=== PATIENT | male | born 1940 | race Caucasian/White ===

== ENCOUNTER → 2016-12-11 | Outpatient (CLI) | payer OTHER ==
[2016-12-11 13:36] LABS: ALT/SGPT 24 U/L (12-78); AST/SGOT 18 U/L (15-37); BLOOD UREA NITROGEN 17 mg/dl (7-18); CALCIUM 8.6 mg/dl (8.5-10.1); CARBON DIOXIDE 29 mmol/L (21-32); CHLORIDE 105 mmol/L (98-107); CREATININE 0.94 mg/dl (0.60-1.40); GLUCOSE 96 mg/dl (70-99); MAGNESIUM 1.7 mg/dl (1.8-2.4); SODIUM 140 mmol/L (136-145)
[2016-12-11 13:39] LABS: CHOLESTEROL 146 mg/dl (0-200); CHOLESTEROL/HDL RATIO 3.6; HDL CHOLESTEROL 41 mg/dl; LDL CHOLESTEROL CALCULATED 89 mg/dl; TRIGLYCERIDES 78 mg/dl (0-150); URIC ACID 4.2 mg/dl (2.6-7.2); VERY LOW DENSITY LIPOPROT CALC 16 mg/dl
== END | disposition home or self-care (01) ==
LOC: C.LABMFLN 08:15
PROVIDERS: ATTEND Family Medicine
DX: I10 Essential (primary) hypertension (principal); N20.0 Calculus of kidney; E83.42 Hypomagnesemia

== ENCOUNTER → 2017-06-08 | Outpatient (CLI) | payer OTHER ==
[2017-06-08 14:04] LABS: ALT/SGPT 18 U/L (12-78); AST/SGOT 18 U/L (15-37); BLOOD UREA NITROGEN 13 mg/dl (7-18); BUN/CREATININE RATIO 13.7 (10-20); CALCIUM 9.2 mg/dl (8.5-10.1); CARBON DIOXIDE 30 mmol/L (21-32); CHLORIDE 102 mmol/L (98-107); CHOLESTEROL 172 mg/dl (0-200); CREATININE 0.94 mg/dl (0.60-1.40); GLUCOSE 92 mg/dl (70-99); MAGNESIUM 1.9 mg/dl (1.8-2.4); POTASSIUM 3.9 mmol/L (3.5-5.1); SODIUM 137 mmol/L (136-145); TRIGLYCERIDES 98 mg/dl (0-150); VERY LOW DENSITY LIPOPROT CALC 20 mg/dl
[2017-06-08 14:07] LABS: CHOLESTEROL/HDL RATIO 4.9; HDL CHOLESTEROL 35 mg/dl; LDL CHOLESTEROL CALCULATED 117 mg/dl
== END | disposition home or self-care (01) ==
LOC: C.LABMFLN 08:56
PROVIDERS: ATTEND Family Medicine
DX: E78.00 Pure hypercholesterolemia, unspecified (principal); N20.0 Calculus of kidney; E83.42 Hypomagnesemia; G25.0 Essential tremor

== ENCOUNTER → 2017-07-14 | Outpatient (CLI) | payer OTHER ==
[2017-07-14 13:45] LABS: BLOOD UREA NITROGEN 16 mg/dl (7-18); CREATININE 0.94 mg/dl (0.60-1.40)
== END | disposition home or self-care (01) ==
LOC: C.LABMFLN 09:18
PROVIDERS: ATTEND Family Medicine
DX: Q45.3 Other congenital malformations of pancreas and pancreatic duct (principal)

== ENCOUNTER → 2017-12-28 | Outpatient (CLI) | payer OTHER ==
[2017-12-28 14:14] LABS: ALT/SGPT 23 U/L (12-78); AST/SGOT 18 U/L (15-37); BLOOD UREA NITROGEN 17 mg/dl (7-18); CALCIUM 8.7 mg/dl (8.5-10.1); CARBON DIOXIDE 29 mmol/L (21-32); CHOLESTEROL 160 mg/dl (0-200); CREATININE 1.01 mg/dl (0.60-1.40); GLUCOSE 100 mg/dl (70-99); POTASSIUM 3.8 mmol/L (3.5-5.1); SODIUM 136 mmol/L (136-145); URIC ACID 4.1 mg/dl (2.6-7.2)
[2017-12-28 14:16] LABS: LDL CHOLESTEROL CALCULATED 106 mg/dl
== END | disposition home or self-care (01) ==
LOC: C.LABMFLN 08:44
PROVIDERS: ATTEND Family Medicine
DX: E78.00 Pure hypercholesterolemia, unspecified (principal); N20.0 Calculus of kidney; G25.0 Essential tremor

== ENCOUNTER 2021-01-31 08:31 | Observation (INO) ==
--- NOTE | 2021-01-01 14:42 | PAT Medication Instructions ---
Medication Instructions Date of Service January 01, 2021 Home Medications Medication Instructions Recorded memantine 10 mg tablet 10 mg PO BID #60 tab 02/08/20 simvastatin 40 mg tablet 40 mg PO QPM #90 tab 05/13/20 propranolol 60 mg tablet 60 mg PO BID #60 tab 11/12/20 aspirin 81 mg tablet,delayed release 81 mg PO Q2D memantine 10 mg tablet 10 mg PO BID simvastatin 40 mg tablet 40 mg PO QPM propranolol 60 mg tablet 60 mg PO BID ascorbate calcium (vitamin C) 500 mg tablet 500 mg PO QAM allopurinol 100 mg PO QAM donepezil 5 mg PO QAM felodipine 5 mg PO QPM tramadol 50 mg PO Q6H PRN vitamin E 400 unit PO QAM STOP taking 2 weeks before surgery If surgery is within 2 weeks, stop taking as soon as possible. vitamin E 400 unit PO QAM DO NOT take the morning of surgery ascorbate calcium (vitamin C) 500 mg tablet 500 mg PO QAM Take morning of surgery With a small sip of water, OTHERWISE NOTHING TO EAT OR DRINK AFTER MIDNIGHT: aspirin 81 mg tablet,delayed release 81 mg PO Q2D memantine 10 mg tablet 10 mg PO BID propranolol 60 mg tablet 60 mg PO BID allopurinol 100 mg PO QAM donepezil 5 mg PO QAM tramadol 50 mg PO Q6H PRN (if needed, may be taken up to four hours before surgery) Take evening before surgery memantine 10 mg tablet 10 mg PO BID simvastatin 40 mg tablet 40 mg PO QPM propranolol 60 mg tablet 60 mg PO BID felodipine 5 mg PO QPM tramadol 50 mg PO Q6H PRN (if needed) Other Notes If you have any questions please call us at [phone] or [phone] or [phone] or [phone]
--- NOTE | 2021-01-06 10:44 | Anesthesiology Consultation ---
Date of Service January 06, 2021 Assessment & Plan (1) Encounter for pre-operative examination: COVID Status: As of 01/06 assessment, patient denies travel to endemic area, known exposure/sick contacts, or symptoms of COVID19. Patient instructed that they and their household members must follow strict social distancing guidelines, wear a mask in public and avoid travel/events/gatherings for 14 days prior to surgery. Preoperative COVID19 testing to be completed prior to surgery per surgeon's arrangements. Patient made aware to self-isolate as much as possible between COVID testing and surgery. Pt to get second covid vaccine 01/07. Chart Review Chart Review: Acceptable Risk for Surgery and Patient seen in Pre Admission Testing Teaching & Discussion Instructed NPO after midnight before surgery, except medications with 15 cc of water. Medication instructions provided according to the PAT guidelines. History Surgery Operation Date: 01/31/21 10:55 Proposed Procedures p Left Total Knee Arthroplasty - Robert Dye MD Height/Weight Height: 5 ft 10 in Weight: 73.8 kg Allergies Allergy/AdvReac Type Severity Reaction Status Date / Time No Known Drug Allergies Allergy Verified 01/01/21 09:00 Medications Home Medications Medication Instructions Recorded Confirmed Last Taken aspirin 81 mg tablet,delayed 81 mg PO Q2D tab 06/18/19 01/01/21 Unknown release memantine 10 mg tablet 10 mg PO BID #60 tab 02/08/20 01/01/21 Unknown simvastatin 40 mg tablet 40 mg PO QPM #90 tab 05/13/20 01/01/21 Unknown propranolol 60 mg tablet 60 mg PO BID #60 tab 11/12/20 01/01/21 Unknown ascorbate calcium (vitamin C) 500 500 mg PO QAM 12/18/20 01/01/21 Unknown mg tablet allopurinol 100 mg PO QAM 01/01/21 01/01/21 Unknown donepezil 5 mg PO QAM 01/01/21 01/01/21 Unknown felodipine 5 mg PO QPM 01/01/21 01/01/21 Unknown tramadol 50 mg PO Q6H PRN 01/01/21 01/01/21 Unknown vitamin E 400 unit PO QAM 01/01/21 01/01/21 Unknown Past Medical History Medical History (Updated 01/08/21 @ 10:34 by Vazquez Colby) Benign essential hypertension Benign essential tremor RIGHT HAND-F/U PCP Cervicalgia Chronic GERD Hypercholesterolemia Hypomagnesemia Left carotid stenosis 70-99% stenosis per 06/19/[address]. [address] Douglas 06/2020, with carotid doppler performed prior to that visit showing 60-69% stenosis of LICA per office note. 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 Carotid doppler from 06/19/19 done for TIA, 70-99% carotid stenosis noted. Pt follows q 6mo with Dr. Douglas. Exercise / Class Metabolic Activity II 4-5 Yardwork/Stairs/Walk up hill (Denies CP or SOB with 1 FOS) Past Family History Family History Son Hypertension Father Hypotension Stroke Uncle Family history of diabetes mellitus Uncle Family history of diabetes mellitus Past Surgical History Surgical History (Updated 01/08/21 @ 10:34 by Vazquez Colby) H/O nephrolithotomy with removal of calculi YRS AGO History of colonoscopy History of hip replacement X3-2 RIGHT/1 LEFT History of lithotripsy MULTIPLE History of open reduction and internal fixation (ORIF) procedure RIGHT ARM Past Anesthesia History No Hx of Anesthesia Complications and No Family Hx of Anesthesia Complications History of PONV No Hx of PONV and No Hx of Motion Sickness Social History Smoking Status: Former smoker Do You Dip or Chew Tobacco: No Smoking End Date: YRS AGO-QUIT IN HIS 20'S Hx Alcohol Use: No Hx Substance Use: No Review of Systems Pt denies any recent chest pain, shortness of breath, palpitations, cough, fever, URI, or uncontrolled acid reflux (controlled, just gets occasional breakthrough). Physical Exam Vital Signs BP: 163/79 (pt reports h/o white coat HTN) P: 50bpm (asymptomatic) SPO2: 97% RA T: 98.0 F R: 16 ENMT Mouth: + dentures (upper only) and + edentulous Thyromental Distance: > or= 3.5 Finger Breadths (3.5) Mallampati Class: I Neck normal visual inspection; neck extension not limited Respiratory Auscultation: lungs clear to auscultation bilaterally (other than crackles) and + crackles (R and middle lung base only) Cardiovascular Rate/Rhythm: regular rhythm and + bradycardic (marked) Heart Sounds: no murmur Vessels: no carotid bruit Extremities: no edema Testing Laboratory Results 01/06/21 10:02 01/06/21 10:52 PT 10.9 Seconds (9.0-12.0) 01/06/21 10:02 INR 1.1 (0.9-1.1) 01/06/21 10:02 APTT 25.1 Seconds (21.0-31.0) 01/06/21 10:02 Blood Type A Positive 01/06/21 10:02 Antibody Screen NEGATIVE 01/06/21 10:02 Electrocardiogram Date: 01/06/21 Findings: + SB @ (46bpm) RBBB (new compared to 2003 EKG). Chest X-Ray Date: 01/06/21 FINDINGS: No pneumothorax or no pleural effusions. The heart is normal in size. There is a mildly tortuous thoracic aorta. There is mild diffuse interstitial thickening which is likely chronic. No focal lung consolidations to suggest pneumonia. No evidence for pulmonary edema. Right lower lung zone nodular density likely represents a nipple shadow. Mild anterior wedge-shaped compression deformities within the mid thoracic spine. This is likely chronic. IMPRESSION: Chronic changes as described above. No acute process within the chest. Echocardiogram Date: 06/20/19 EF: 60-65% Normal LV size and systolic function. No regional wall motion normalities. Mild concentric LVH. Sclerotic aortic valve without significant stenosis. Mild mitral regurgitation. Normal estimated RVSP. No prior study available for comparison. Other Testing Per office note from vascular ([facility], Liya Silva/Stella) -- Carotid duplex from 06/2020 showed "60-69% stenosis of the left ICA and no hemodynamically significant stenosis in the right ICA. He has antegrade flow in both vertebral arteries and normal flow in both subclavian arteries. This is essentially unchanged in comparison to the last ultrasound performed at [place] approximately 1 year ago."
--- NOTE | 2021-01-06 11:21 | XRay Report ---
XR chest Pre-admission PA/Lat HISTORY: Preadmission chest x-ray. Preop. Degenerative joint disease. COMPARISON: None. FINDINGS: No pneumothorax or no pleural effusions. The heart is normal in size. There is a mildly tor tuous thoracic aorta. There is mild diffuse interstitial thickening which is likely chronic. No focal lung consolidations to suggest pneumonia. No evidence for pulmonary edema. Right lower lung zone nod ular density likely represents a nipple shadow. Mild anterior wedge-shaped compression deformities wi thin the mid thoracic spine. This is likely chronic. IMPRESSION: Chronic changes as described above. No acute process within the chest. ACT 112: Negative or not required by law. Electronically signed by: Arthur Johansen M.D. 01/06/2021 11:20 AM
[2021-01-06 12:06] LABS: Basophils # (auto) 0.03 K/uL (0-0.2); Basophils % (auto) 0.5 %; Eosinophils % (auto) 8.6 %; Hematocrit (blood only) 41.1 % (42-52); Hemoglobin 14.2 g/dL (14.0-18.0); Lymphocytes # (auto) 1.13 K/uL (1.2-3.4); Lymphocytes % (auto) 19.4 %; Mean Corpuscular Hemoglobin 31.8 pg (25-34); Mean Corpuscular Hgb Conc 34.5 g/dL (32-36); Mean Corpuscular Volume 92.2 fL (80-100); Mean Platelet Volume 10.5 fL (7.4-10.4); Monocytes # (auto) 0.65 K/uL (0.11-0.59); Monocytes % (auto) 11.2 %; Neutrophils # (auto) 3.51 K/uL (1.4-6.5); Neutrophils % (auto) 60.3 %; Platelet Count 208 K/uL (130-400); RDW Coefficient of Variation 12.9 % (11.5-14.5); RDW Standard Deviation 43.4 fL (36.4-46.3); Red Blood Count 4.46 M/uL (4.7-6.1); White Blood Count 5.82 K/uL (4.8-10.8)
[2021-01-06 12:17] LABS: INR 1.1 (0.9-1.1); Partial Thromboplastin Time 25.1 Seconds (21.0-31.0); Prothrombin Time 10.9 Seconds (9.0-12.0)
[2021-01-06 12:50] LABS: BUN Creatinine Ratio 16.8 (10-20); Calcium 9.3 mg/dl (8.5-10.1); Creatinine Clr Calc Pharmacy 63.8 ml/min; Est GFR (African American) 85.7; Est GFR (Non-African American) 73.9
--- NOTE | 2021-01-07 05:53 | Electrocardiogram Report ---
Test Reason : Blood Pressure : / mmHG Vent. Rate : 046 BPM Atrial Rate : 046 BPM P-R Int : 174 ms QRS Dur : 150 ms QT Int : 502 ms P-R-T Axes : 073 067 061 degrees QTc Int : 439 ms Sinus bradycardia Right bundle branch block Abnormal ECG When compared with ECG of 29-OCT-2003 14:17, Right bundle branch block is now Present Confirmed by Jorge Alberto Grace ([id number]) on 01/07/2021 5:52:44 AM Referred By: Robert Dye Confirmed By:Jorge Alberto Grace
--- NOTE | 2021-01-25 09:53 | History and Physical Report ---
DATE OF ADMISSION: 01/31/2021 CHIEF COMPLAINT: Left knee pain. HISTORY OF PRESENT ILLNESS: A 80-year-old gentleman from [place] who presents for treatment of his left knee. He has got a long history of left knee pain and discomfort, describes it has gotten worse over time. He has been through extensive conservative care including oral medicines which provide minimal relief. He has had injection which seemed to help a little bit more, but it is only temporary. Pain is mostly with weightbearing. It increases as the day goes on. He limps more as the day goes on. He gets stiff if he sits down. He has difficulty going up and down steps. He would like to have his knee fixed. PAST MEDICAL HISTORY: 1. Hypertension. 2. History of TIA without residual swelling. 3. Gastroesophageal reflux disease. 4. Kidney stones. 5. Carotid stenosis. 6. Right bundle branch block. PAST SURGICAL HISTORY: Include bilateral hip replacements done by Dr. Keene with one revision. ALLERGIES: None. CURRENT MEDICINES: Include: 1. Allopurinol 100 mg. 2. Vitamin C. 3. Aspirin 81 mg a day. 4. Donepezil 5 mg. 5. Felodipine ER 5 mg. 6. Memantine 10 mg twice a day. 7. Propranolol 60 mg twice a day. 8. Simvastatin 40 mg a day. 9. Tramadol. SOCIAL HISTORY: A 80-year-old male. He is . He is retired. FAMILY HISTORY: Significant for hypertension. REVIEW OF HISTORY: Negative for diabetes, neurologic problem, vascular problem, bleeding disorders. He does have a history of TIA in the past without sequelae. No chest pain. No DVTs or PEs. PHYSICAL EXAMINATION: GENERAL: Shows a pleasant 80-year-old male. Looks to be in good health. Looks younger than his stated age. HEENT: Benign. NECK: Supple, no lymphadenopathy. LUNGS: Clear to auscultation. HEART: Regular rate and rhythm. ABDOMEN: Soft, nontender, nondistended. EXTREMITIES: Grossly neurovascularly intact except as follows. Examination of the left knee reveals the patient walks with a little bit of a limp. He has got valgus alignment to his knee which increases with weightbearing. Small knee effusion. Thin soft tissue envelope. Range of motion is about 10-degree flexion contracture to about 120 degrees of flexion. No pain with hip motion. X-RAYS: X-rays of the left knee reviewed. It shows advanced left knee lateral compartment DJD. He has got complete loss of his lateral joint space. He has got subchondral sclerosis with osteophytes laterally. ASSESSMENT: A 80-year-old male with history of bilateral hip replacements in the past and 1 revision with multiple medical comorbidities including hypertension, transient ischemic attack, gastroesophageal reflux disease, kidney stones, carotid artery stenosis and right bundle tyron block with advanced left knee degenerative joint disease. He has failed conservative measures and would like to have his left knee replaced. PLAN: We will take him to the operating room and do a left total knee replacement. The risks and benefits of this procedure were explained to the patient including but not limited to DVT, PE, , infection, neurological injury, vascular injury, bleeding problem, pain, limited range of motion, stiffness, failure to relieve symptoms, incomplete relief of symptoms, need for further surgery in future, fracture, leg length inequality, nerve palsy, etc. The patient understands and desires to proceed. Informed consent was obtained. We did talk to him about taking his beta gertrude the morning of surgery and hold the donepezil. He is planning to be discharged to home using [facility] home health program.
[~2021-01-31 08:31] MED LIST: ACETAMINOPHEN 500 MG TAB PO SCH; BUPIVACAINE 0.5 % 5 MG/1 ML PF 10ML VIAL ONE; BUPIVACAINE LIPOSOME/PF 266 MG, BUPIVACAINE/EPINEPHRINE 50 ML, SODIUM CHLORIDE 0.9% 30 ... INFIL SCH; EPINEPHrine INJ 1 MG/ML AMP ONE; FAMOTIDINE 20 MG TAB PO SCH; GABAPENTIN 300 MG CAP PO SCH; LR 500ML BOLUS, THEN 15ML/HR IV SCH; ROPIVACAINE 0.5% 5 MG/ML 30 ML VIAL ONE; ceFAZolin 2000MG 2,000 MG/15 ML SYR IV SCH
--- NOTE | 2021-01-31 09:00 | History & Physical Bridge Note ---
Date of Service January 31, 2021 History & Physical Bridge Note I have examined the patient, reviewed the History & Physical and in the interval since the performance of the History & Physical I have noted the following changes of clinical significance: no changes noted
[2021-01-31] MEDS ORDERED: fentaNYL citrate 100 MCG/2 ML VIAL ONE (09:21)
[2021-01-31] MEDS ORDERED: MIDAZOLAM HCL 1 MG/ML 2ML VIAL ONE (09:21)
[2021-01-31] MEDS ORDERED: TRANEXAMIC ACID / 0.7% NACL 1,000 MG/100 ML BAG IV STA (09:34)
[2021-01-31] MEDS ORDERED: TRANEXAMIC ACID / 0.7% NACL 1000MG/100ML BAG IV ONE (09:50)
[2021-01-31] MEDS ORDERED: SODIUM CHLORIDE 0.9% PF 50 ML VIAL ONE (11:03)
[2021-01-31] MEDS ORDERED: BUPIVACAINE LIPOSOME 1.3% 266 MG/20 ML VIAL ONE (11:03)
[2021-01-31] MEDS ORDERED: BUPIVACAINE 0.25% 30 ML VIAL ONE (11:03)
[2021-01-31] MEDS ORDERED: EPINEPHrine INJ 1 MG/ML AMP ONE (11:04)
[2021-01-31] MEDS ORDERED: ATROPINE SULFATE 0.1 MG/ML 10ML SYR IV PRN (11:10)
[2021-01-31] MEDS ORDERED: ePHEDrine sulfate 50 MG/ML AMP IV PRN (11:10)
[2021-01-31] MEDS ORDERED: PROPOFOL IV EMULSION 10 MG/ML 20 ML VIAL IV ONE (11:30)
--- NOTE | 2021-01-31 13:19 | Operative Report ---
Post Operative Report Pre & Post Diagnosis Operation Date: 01/31/21 10:40 Pre-Op Diagnosis: Left Knee Advanced Degenerative Joint Disease Post-Op Diagnosis: Left Knee Advanced Degenerative Joint Disease I identified the patient and participated in the time-out.: Yes Procedure Operation Date: 01/31/21 10:40 Actual Procedures p Left Total Knee Arthroplasty(Left) - Robert Dye MD Surgeon Robert Dye MD Foundation Director SYBIL Perez Estimated Blood Loss 50 Findings Consistent with Post-Op Diagnosis Operative findings were revealed advanced left knee DJD with extensive grade 4 hxrm-xa-pine disease and eburnation of the lateral compartment. His medial and patellofemoral compartments were pretty well-preserved. Moderate-sized joint effusion. He had about 10 to 15 degree flexion contracture with a fixed valgus deformity. Fluids 500 cc Specimens Left knee sent for pathology. Drains None Anesthesia Type Spinal MAC Complications none Disposition Accompanied Patient To Recovery: Yes Indications Patient is a 80-year-old gentleman has had a long history of left knee pain discomfort describes gotten worse over time. He failed conservative measures. His knee was also giving out on him regularly. He elected proceed with surgical treatment. Description of Procedure Operative implants consist of: 1. Biomet Vanguard size 65 left posterior stabilized femoral component. 2. Biomet size 71 tibial tray. 3. 10 mm posterior stabilized plus polyethylene insert. 4. 28 x 8 all polypatella. Patient was taken to the operating, identified, placed on the operating table supine position but all contractors were properly padded. IV antibiotics were h igh by the anesthesia team. A Jarquin catheter was placed in sterile fashion. A left thigh turn was then placed. Left lower extremity was then prepped and draped in usual sterile fashion. The left leg was elevated exsanguinated with use of an Esmarch and turns placed at 3 mmHg. An anterior approach left knee was then performed through longitudinal incision centered over the patella. Sharp dissection was carried through subcutaneous this down the extensor mechanism. A medial parapatellar arthrotomy incision was made. Some subperiosteal dissection was carried out medially. The fat pad was resected from each patella tendon. Lateral patellofemoral ligament was released. Patella was subluxated laterally and the knee was flexed. The osteophytes were taken off distal femur. The ACL and PCL were then released in the distal femur and the tibia subluxated anteriorly. The external tibial alignment jig was then placed in the interface the tibia and adjusted 12 mm medially. Proximal tibial cut was made to remove 3 to 4 mm of bone from the medial side. The tibia was then sized to a size 71. We did have to downsize this a bit in order to get properly rotated. Attention drawn the f emur. The distal femur stem with a sharp drop with intramedullary canal was suction. A left 5 degree valgus cutting guide was placed. Distal femoral cutting block was pinned in place but distal femoral cut was made to take an additional 5 mm of bone off distal femur. I then brought the knee out in extension. I did release some the IT band in order to equalize extension gap. The knee was then flexed. The femur was sized to a size 65. The AP cutting block was pinned parallel to the epicondylar axis which was 6 degrees of external rotation. The anterior cut, anterior chamfer, posterior cut, posterior chamfer cuts were made. The box cutting guide was then placed in the box cut was made. The knee was flexed. The remnants of the medial and lateral menisci were excised. The osteophytes were taken off the posterior aspect the femur. I did release the popliteus in order to equalize the flexion gap. A trial femoral component was placed and the tibial tray was pinned in maximum external rotation and the drill and stem punch were used to create defect in proximal tibia for the tibial tray. Knee was then trialed and the 10 mm insert fit most appropriately. He still a little bit of laxity to his MCL so I elected to use the PS plus insert to maximize stability. I felt if I increased his polythickness it would likely lead to more tightness in extension in which I wanted to avoid as he said a previous flexion contracture. We elect to place his implants. Attention drawn the patella. The patella was cleaned of all soft tissue. Patella thickness measured 23 mm in thickness was cut down to 14. It was sized to a 28 patella. The lug holes were drilled for the 28 patella. The lateral osteophyte was removed. Patella button was placed. Knee was taken through range of motion patella tracked nicely with no thumbs test. Attention placed through the permanent components. All trial components were removed. A bone plug was placed in the distal femur limit blood loss. A double batch Palacos G cement was mixed. A size 65 left posterior stabilized femoral component, size 71 tibial tray, a 10 mm posterior stabilized polyethylene plus insert and a 28 x 8 all polypatella were then cemented in place. Knee was brought out into full extension total cement hardened. Final cement check was then performed. Pericapsular tissues were injected with a total of 100 cc of combination of 20 cc of Exparel, 30 cc normal saline, 50 cc of quarter percent Marcaine with epinephrine. Patient did receive 1 g tranexamic acid per the chart was then let down for final tourniquet time 61 minutes. Hemostasis reduced electrocautery. Extensor mechanism was then closed with combination 1 PDS suture #1 Vicryl suture in [id number] fashion. The extensor mechanism checked found to be intact with subcutaneous tissue then closed with 2 Dexon suture in a buried interrupted fashion skin was closed skin yogi. Leg was then cleaned and dried a sterile dressing was Xeroform, 4 x 4's, sterile cast padding, Esau bandage were applied. Patient and transferred to the recovery room in stable condition. Patient tolerated the procedure well and there were no complications. Christiano Perez, my physician assistant sales center manager, was present for the entire procedure. His assistance was essential and required for appropriate patient positioning, prepping and draping, surgical exposure, performing the technical details of the operation, placement the implants, closure of the wound, and placement of the sterile bandage. I attest to the content of the Intraoperative Record and any orders documented therein. Any exceptions are noted below.
--- NOTE | 2021-01-31 13:32 | XRay Report ---
XR knee LT 1 or 2V routine HISTORY: 80 years-old Male Surgical Post Op left knee total joint arthroplasty COMPARISON: Knee radiographs 12/18/2020 TECHNIQUE: 3 views of the left knee FINDINGS: Left knee total joint arthroplasty and patella resurfacing. Anterior midline skin yogi. Expected p ostsurgical soft tissue swelling and deep tissue air. No acute fracture or unexpected opaque foreign body. Arterial calcifications. IMPRESSION: Left knee total joint arthroplasty with expected postoperative changes. ACT 112: Negative or not required by law. The above report was generated using voice recognition software. It may contain grammatical, syntax o r spelling errors. Electronically signed by: Harmeet Smallwood M.D. 01/31/2021 1:31 PM
--- NOTE | 2021-01-31 13:55 | Anesthesiology Progress Note ---
Date of Service January 31, 2021 Anesthesia Post Procedure Vital Signs Vital Signs: Temp Pulse Pulse Resp BP BP Pulse Ox 01/31/21 13:50 45 L 14 128/70 95 01/31/21 13:40 42 L 12 135/72 95 01/31/21 13:30 45 L 14 117/74 95 01/31/21 13:20 41 L 14 138/71 95 01/31/21 13:10 35.9 C L 45 L 14 118/74 92 01/31/21 09:28 36.8 C 45 L 18 150/63 H 98 Transfer of Care Handoff Completed per policy Notes Mental Status: alert / awake / arousable Patient Amnestic to Procedure: Yes Nausea / Vomiting: adequately controlled Pain: adequately controlled Airway Patency, RR, SpO2: stable & adequate BP & HR: stable & adequate Hydration State: stable & adequate Neuraxial Anesthesia: was administered and sensory block is resolving Anesthetic Complications: no major complications apparent
[2021-01-31] MEDS ORDERED: MAGNESIUM HYDROXIDE SUSP 30 ML UDC PO PRN (14:33)
[2021-01-31] MEDS ORDERED: ALUMINUM/MAGNESIUM SUSP 30 ML UDC PO PRN (14:33)
[2021-01-31] MEDS ORDERED: HYDROmorphone INJ 0.5 MG/0.5 ML SYR IV PRN (14:33)
[2021-01-31] MEDS ORDERED: ONDANSETRON INJ 2 MG/ML 2 ML VIAL IV PRN (14:33)
[2021-01-31] MEDS ORDERED: NALOXONE HCL 0.4 MG/1 ML VIAL/CARP IV PRN (14:33)
[2021-01-31] MEDS ORDERED: TAMSULOSIN HCL 0.4 MG CAP PO PRN (14:33)
[2021-01-31] MEDS ORDERED: bisacodyL 10 MG SUPP PR PRN (14:33)
[2021-01-31] MEDS ORDERED: METOCLOPRAMIDE HCL INJ 5 MG/ML 2 ML VIAL IV PRN (14:33)
[2021-01-31] MEDS: KETOROLAC TROMETHAMINE 15 MG/ML VIAL IV SCH ×2 (15:55→21:10)
[2021-01-31] MEDS: ACETAMINOPHEN 500 MG TAB PO SCH ×2 (15:55→21:10)
[2021-01-31] MEDS: ASCORBIC ACID 500 MG TAB PO SCH (15:56)
[2021-01-31] MEDS: SODIUM CHLORIDE 0.9% 1000ML 1,000 ML IV SCH (16:16)
[2021-01-31] MEDS ORDERED: TRANEXAMIC ACID / 0.7% NACL 1,000 MG/100 ML BAG IV SCH (19:00)
[2021-01-31] MEDS: ceFAZolin 1000MG 1,000 MG/7.5 ML SYR IV SCH (19:44)
[2021-01-31] MEDS: DOCUSATE SODIUM 100 MG CAP PO SCH (20:56)
[2021-01-31] MEDS: ASPIRIN 81 MG ECTAB PO SCH (20:56)
[2021-01-31] MEDS ORDERED: FELODIPINE 5 MG TABCR PO SCH (21:00)
[2021-01-31] MEDS ORDERED: SIMVASTATIN 40 MG TAB PO SCH (21:00)
[2021-01-31] MEDS ORDERED: SENNA 8.6 MG TAB PO SCH (21:00)
[2021-01-31] MEDS: MEMANTINE HCL 10 MG TAB PO SCH (21:09)
[2021-01-31] MEDS: PROPRANOLOL HCL 20 MG TAB PO SCH (21:09)
[2021-02-01] MEDS: traMADol HCL 50 MG TABLET PO PRN ×2 (02:50→10:59)
[2021-02-01] MEDS: KETOROLAC TROMETHAMINE 15 MG/ML VIAL IV SCH ×2 (02:50→08:24)
[2021-02-01] MEDS: SODIUM CHLORIDE 0.9% 1000ML 1,000 ML IV SCH (02:58)
[2021-02-01] MEDS: ceFAZolin 1000MG 1,000 MG/7.5 ML SYR IV SCH (03:00)
[2021-02-01] MEDS: ACETAMINOPHEN 500 MG TAB PO SCH (05:39)
[2021-02-01 06:03] LABS: Hematocrit (blood only) 38.7 % (42-52); Hemoglobin 13.4 g/dL (14.0-18.0); Mean Corpuscular Hemoglobin 31.7 pg (25-34); Mean Corpuscular Hgb Conc 34.6 g/dL (32-36); Mean Corpuscular Volume 91.5 fL (80-100); Mean Platelet Volume 10.1 fL (7.4-10.4); Platelet Count 203 K/uL (130-400); Red Blood Count 4.23 M/uL (4.7-6.1); White Blood Count 8.08 K/uL (4.8-10.8)
[2021-02-01 06:28] LABS: BUN Creatinine Ratio 17.2 (10-20); Calcium 8.1 mg/dl (8.5-10.1); Creatinine Clr Calc Pharmacy 69.1 ml/min; Est GFR (African American) 94.3; Est GFR (Non-African American) 81.3; Potassium 3.7 mmol/L (3.5-5.1)
[2021-02-01] MEDS ORDERED: dexAMETHasone 4 MG TAB PO SCH (08:00)
[2021-02-01] MEDS: DOCUSATE SODIUM 100 MG CAP PO SCH (08:23)
[2021-02-01] MEDS: ASPIRIN 81 MG ECTAB PO SCH (08:24)
[2021-02-01] MEDS: MEMANTINE HCL 10 MG TAB PO SCH (08:24)
[2021-02-01] MEDS: ASCORBIC ACID 500 MG TAB PO SCH (08:24)
[2021-02-01] MEDS: PROPRANOLOL HCL 20 MG TAB PO SCH (08:27)
--- NOTE | 2021-02-01 08:52 | Progress Notes ---
DATE: 02/01/2021 SUBJECTIVE: A 80-year-old gentleman postop day 1 from a left knee replacement. He is doing pretty well. Pain is controlled. He had a pretty good night. No chest pain or shortness of breath. Not feeling dizzy or lightheaded. OBJECTIVE: VITAL SIGNS: Temperature is 36.7. Vital signs stable. Mildly bradycardic at 55. GENERAL: Shows a pleasant elderly male. He is sitting up in bed, looks quite comfortable. LUNGS: Clear to auscultation. HEART: Has a regular rate and rhythm. ABDOMEN: Soft, nontender, and nondistended. EXTREMITIES: Grossly neurovascularly intact except as follows: Examination of the left leg reveals the leg to be well aligned. Dressing is clean, dry, and intact. He can dorsiflex and plantarflex his foot appropriately. He is neurologically intact. LABORATORY DATA: Hemoglobin 13.4. Hematocrit 38.7. Electrolytes are normal. ASSESSMENT: A 80-year-old gentleman postop day 1 from left knee replacement, doing well. Pain is controlled. He is neurologically intact. PLAN: 1. DVT prophylaxis including thigh-high TEDs, SCDs, and aspirin twice a day. 2. PT/OT. Weight bear as tolerated. Left total knee protocol. 3. Pain control, doing well with current pain regimen. 4. Disposition: Plan to discharge to home with some home health, if does okay in therapy and getting around safely.
[2021-02-01] MEDS ORDERED: DONEPEZIL HCL 5 MG TAB PO SCH (09:00)
[2021-02-01] MEDS ORDERED: allopurinoL 100 MG TAB PO SCH (09:00)
[2021-02-01] MEDS ORDERED: TOCOPHERYL, DL-ALPHA 400 UNITS CAP PO SCH (09:00)
[2021-02-01] MEDS ORDERED: ASCORBIC ACID 500 MG TAB PO SCH (09:00)
[2021-02-01] MEDS ORDERED: MULTIVITAMIN TAB PO SCH (09:00)
--- NOTE | 2021-02-02 15:58 | Discharge Summary ---
Date of Service February 02, 2021 Discharge Data Procedures Performed Operation Date: 01/31/21 10:40 Actual Procedures p Left Total Knee Arthroplasty(Left) - Robert yDe MD Hospital Course (1) Status post total left knee replacement: This patient is a 80 year old male admitted on 01/31/21 and underwent total knee arthroplasty. He tolerated the procedure well and there were no complications. Transferred to the PACU post op and later to the orthopedic floor for further care. He was given ancef for antibiotic prophylaxis. He was also given NELA stockings, SCDs, and aspirin for DVT prophylaxis. Hemoglobin, hematocrit, and vital signs were monitored during his hospital stay and remained stable. Did not require any blood transfusions. There were no complications during his hospital stay. By post op day #1 the patient was tolerating a regular diet, pain was reasonably controlled with oral pain medicine, and he was participating in physical therapy. On post op day #1 the patient was discharged home and set up with home health care. He was given printed discharge instructions including prescriptions for extra strength tylenol, aspirin, and tramadol. Continue physical therapy, weight bearing as tolerated. Continue NELA stockings. Follow up approximately 2 weeks post op or sooner if there are problems or concerns. Coding Level of Care Code None Diagnoses Status post total left knee replacement Z96.652
== END 2021-02-01 13:46 | disposition home health service (06) ==
LOC: 3E 08:31 → ASU 08:31